=== PATIENT | male | born 1960 | race Caucasian/White ===

== ENCOUNTER → 2018-07-26 16:34 | Outpatient (CLI) | payer OTHER, SELFPAY ==
[2018-07-26 17:11] LABS: Hemoglobin A1C% w Est Avg Glu 6.6 % (4.0-6.0)
== END ==
PROVIDERS: Family Provider Family Medicine; PCP Family Medicine; Visit Provider Family Medicine
DX: E11.9 Type 2 diabetes mellitus without complications (principal)
CPT/HCPCS: 36415; 83036

== ENCOUNTER 2018-09-08 11:05 | Day surgery (SDC) | payer OTHER, SELFPAY ==
[2018-09-08] VITALS (8 sets, daily range): BP systolic 104–158; BP diastolic 72–94; PULSE 63–72; RESP 12–16; TEMP 36.2–36.9; O2SAT 93–96; BMI 31.9
[2018-09-08] MEDS: SODIUM CHLORIDE 0.9% 1,000 ML 200 ML IV (12:18)
--- NOTE | 2018-09-08 12:47 | PM.PREOP ---
Pre-operative Note Interval Note Pre-op Check: Yes History & Physical Reviewed by Physician, Yes Exam Performed and Yes History & Physical exam performed today by Physician Changes: No H&P completed within 30 days and has changed as indicated here:: Patient seen and examined today. History and physical examination documented and placed on the chart today. Proceed with colonoscopy as planned. ASA Class (for procedural sedation): II
--- NOTE | 2018-09-08 12:48 | P.HP_ITS ---
History of Present Illness Date Patient Seen: 09/08/18 Time Patient Seen: 12:44 Chief complaint: [id number] Narrative: 58-year-old male with personal history of colon polyps whose last endoscopy was approximately 10 years ago. He presents today for colorectal surveillance. On further history today he denies any nausea, vomiting, loss of appetite, unexplained weight loss, abdominal pain, change in bowel habits, diarrhea, constipation, melena, or hematochezia. Patient History Medical History Asthma (Acute) Diabetes (Acute) History of colon polyps (Acute) Hyperlipidemia (Acute) Hypertension (Acute) Seasonal allergies (Acute) Surgical History History of colonoscopy (Acute) History of hernia repair (Acute) Family & Social History Family History: Reviewed 09/08/18 by Mars Neely MD Social History: household members family Tobacco & Substance use: Smoking Status Never smoker Meds Home Medications Medication Instructions Recorded Confirmed Type loratadine [Claritin] 10 mg PO PRN #30 tab 03/09/17 01/25/18 Rx epinephrine [EpiPen 2-Evert] 0.3 mg IJ PRN PRN #1 pkg 12/20/17 01/25/18 Rx glimepiride 2 mg tablet 2 mg PO AMCC #30 tab 02/27/18 Rx lisinopril 20 1 tab PO QAM #90 tab 03/02/18 Rx mg-hydrochlorothiazide 12.5 mg tablet simvastatin 10 mg tablet 10 mg PO HS #90 tabs 03/02/18 Rx albuterol sulfate [Ventolin HFA] 1 - 2 puff INH Q2-4H PRN #1 inh 05/17/18 Rx metformin 500 mg tablet 1,000 mg PO BID #360 tabs 08/23/18 Rx Allergies Allergy/AdvReac Type Severity Reaction Status Date / Time peanut [PEANUT] Allergy Severe ANAPHYLAXIS Verified 01/25/18 10:50 shellfish derived Allergy Severe Anaphylaxis Verified 09/08/18 12:09 [SHELLFISH DERIVED] venom-honey bee Allergy Severe swelling Verified 09/08/18 12:09 [BEE VENOM (HONEY BEE)] eyes wheat [WHEAT] Allergy Severe ANAPHYLAXIS Verified 01/25/18 10:50 Penicillins [PENICILLINS] Allergy Intermediate Rash Verified 09/08/18 12:09 Review of Systems Review of Systems All systems reviewed & are unremarkable except as noted in HPI and below Exam Vital Signs (past 8 hours): - 09/08/18 12:13 Temperature 98.2 F Pulse Rate 72 Respiratory Rate 16 Blood Pressure 158/94 H Pulse Oximetry 96 Oxygen Delivery Method Room Air Narrative Exam Narrative: Well-nourished well-developed male in no acute distress. Alert oriented x3 Sclera nonicteric Regular rate and rhythm Abdomen soft, nondistended, nontender, no masses Extremities show no clubbing or cyanosis Objective Labs Labs: No recent laboratory or radiographic studies for review. Fingerstick blood sugar at admission today was 116. Assessment & Plan Plan: Assessment/Plan Narrative: 58-year-old male with personal history of colon polyps requiring colorectal surveillance for such. I recommend colonoscopy. Technical details of the procedure were reviewed. Risks, benefits, alternatives were explained. Risks including but not limited to sedation, aspiration, bleeding, pain, missed lesion , incomplete examination, need for further radiographic studies, colonic perforation, need for major abdominal surgery, and all attendant risks of major surgery were discussed in detail. All questions were answered to his satisfaction, and he voiced understanding. Consent was placed on the chart. We will proceed as above.
[2018-09-08] MEDS: MIDAZOLAM 5 MG/5 ML VIAL IV (13:03)
[2018-09-08] MEDS: fentaNYL 250 MCG/5 ML INJ IV (13:04)
--- NOTE | 2018-09-08 13:16 | PM.OP.ENDO ---
Operative Date/Time/Diagnoses Date of procedure: 09/08/18 Time of procedure: 13:16 Pre-op diagnosis: Personal history of colon polyps Post-op diagnosis: other (Normal colon and rectum) Procedure & Clinicians Study performed: 1. Sedation per surgeon 2. Colonoscopy Same procedure as scheduled: Yes Indications: 58-year-old male with personal history of colon polyps. Last endoscopy was 10 years ago. He presents now for colorectal surveillance. Colonoscopy is recommended. Surgeon: Mars Neely Procedure Notes SCOAP/Timeout: Yes Procedure in detail: After obtaining informed consent, the patient was brought to the GI suite and placed in the left lateral decubitus position on the examination table. After placement of appropriate monitors, the patient was given incremental doses of Versed and Fentanyl until an appropriate level of sedation was achieved. A time out was held per SCOAP protocol. A digital rectal examination was performed and did not reveal any masses or obstructing lesions. The colonoscope was gently passed into the patient's anus and the entire colon navigated to the level of the cecum with minimal difficulty. Terminal ileum was intubated and noted to be grossly normal. Once in the cecum, the scope was withdrawn being sure to go before and beyond all mucosal folds and prominences and get an excellent examination. The findings are noted above. At the level of the rectal vault, the scope was retroflexed and the internal anal canal was examined. The scope was straightened and air aspirated from the colon. The instrument was removed from the patient's body and the procedure was concluded. The patient was allowed to awaken from sedation without difficulty and taken to the post-anesthesia care unit in good condition. Scope withdrawal time: 7:58 min Sedation minutes: 18 Findings: other findings (Normal colon and rectum) Specimen(s): none sent Complications: none Recommendations: Colonscopy in 10 years and High fiber diet Plan for aftercare: 1. Discharged home Follow up: as needed Disposition: PACU
== END 2018-09-08 15:00 | disposition home or self-care (01) ==
PROVIDERS: Family Provider Family Medicine; PCP Family Medicine; Visit Provider Surgery
PROC: 0DJD8ZZ Inspection of Lower Intestinal Tract, Via Natural or Artificial Opening Endoscopic (ICD-10-PCS; CPT 45378; principal; 2018-09-08 13:00)
DX: Z86.010 Personal history of colon polyps (principal); J45.909 Unspecified asthma, uncomplicated; E11.9 Type 2 diabetes mellitus without complications; E78.5 Hyperlipidemia, unspecified; I10 Essential (primary) hypertension; Z79.84 Long term (current) use of oral hypoglycemic drugs
CPT/HCPCS: 45378; 99152; J2250; J3010

== ENCOUNTER 2021-09-27 12:19 | Emergency (ER) | payer OTHER, SELFPAY ==
[2021-09-27 14:06] VITALS: BP 146/86; PULSE 85; RESP 16; TEMP 36.7; O2SAT 97
--- NOTE | 2021-09-27 15:11 | ED.BACK ---
HPI - Back Pain/Injury General Chief Complaint: Back Pain/Injury Stated Complaint: LT SIDE ABDOMINAL NUMBNESS Time Seen by Provider: 09/27/21 15:11 Source: patient History of Present Illness HPI Narrative: Patient is a 61-year-old male has diabetes, hypertension, chronic back pain presenting today with 3 days of abdominal numbness. He says he has had ongoing low back pain was worse about a month ago. His job is quite labor-intensive he has had increasing back pain however over the last 3-4 days he has noted some numbness and coolness in his left abdomen. He can track it is not moving there is no rash it is not significantly painful. He occasionally has sharp shooting pain down his left leg. He has no changes in bowel or bladder habits. He has no fever. He just thought this was a little abnormal. Related Data Previous Rx's Medication Instructions Recorded loratadine 10 mg tablet (Claritin) 10 mg PO PRN #30 tab 03/09/17 glimepiride 2 mg tablet (Amaryl) 2 mg PO AMCC #30 tab 02/27/18 lisinopril 20 1 tab PO QAM #90 tab 03/02/18 mg-hydrochlorothiazide 12.5 mg tablet simvastatin 10 mg tablet (Zocor) 10 mg PO HS #90 tabs 03/02/18 albuterol sulfate 90 mcg/actuation 1 - 2 puff INH Q2-4H PRN #1 inh 05/17/18 aerosol inhaler (Ventolin HFA) metformin 500 mg tablet 1,000 mg PO BID #360 tabs 11/27/18 (Glucophage) epinephrine 0.3 mg/0.3 mL 0.3 mg (0.3 mL) IM PRN PRN #1 pkg 04/24/19 injection, auto-injector (EpiPen 2-Evert) prednisone 20 mg tablet 20 mg PO DAILY #5 tab 09/27/21 Allergies Allergy/AdvReac Type Severity Reaction Status Date / Time peanut [PEANUT] Allergy Severe ANAPHYLAXIS Verified 01/25/18 10:50 shellfish derived Allergy Severe Anaphylaxis Verified 09/08/18 12:09 [SHELLFISH DERIVED] venom-honey bee Allergy Severe swelling Verified 09/08/18 12:09 [BEE VENOM (HONEY BEE)] eyes wheat [WHEAT] Allergy Severe ANAPHYLAXIS Verified 01/25/18 10:50 Penicillins [PENICILLINS] Allergy Intermediate Rash Verified 09/08/18 12:09 Review of Systems Review of Systems Narrative: GENERAL: Denies chills, fatigue, malaise, fever, sweats, travel HEENT: Denies sinus pain, ear pain, sore throat, difficulty swallowing, neck pain RESPIRATORY: Denies dyspnea, cough, wheezing, hemoptysis, sputum. CARDIOVASCULAR: Denies chest pain, palpitations, orthopnea, edema GASTROINTESTINAL: Denies nausea, vomiting, abdominal pain, diarrhea, constipation, melena. : Denies dysuria, frequency, incontinence, hematuria, urinary retention, flank pain. MUSCULOSKELETAL: + back pain, see HPI Denies weakness, joint pain, or bony pain SKIN: No rash, no erythema, no pruritus NEUROLOGIC: See HPI PSYCHIATRIC: No concerning psychosocial issues. 12 point review of systems is negative except for those stated above and HPI Patient History Medical History (Updated 09/27/21 @ 15:34 by Fatemeh Vargas DO) Asthma Diabetes History of colon polyps Hyperlipidemia Hypertension Seasonal allergies Surgical History History of colonoscopy History of hernia repair Social History household members: family Smoking Status: Never smoker Smoking Status: Never smoker Exam Initial Vital Signs Initial Vital Signs: Vital Signs Temperature 98.0 F 09/27/21 14:06 Pulse Rate 85 09/27/21 14:06 Respiratory Rate 16 09/27/21 14:06 Blood Pressure 146/86 H 09/27/21 14:06 Pulse Oximetry 97 09/27/21 14:06 GENERAL: Well-appearing, well-nourished and in no acute distress. He overall appears well and in not any pain HEENT: Head atraumatic,EOMI, pupils reactive, face symmetric, moist mucous membranes CARDIOVASCULAR: Peripheral pulses intact RESPIRATORY: Speaks in full sentences without difficulty ABDOMEN: Soft, nontender. Normoactive bowel sounds all 4 quadrants. No guarding or rebound. BACK: No vertebral tenderness no paraspinal tenderness EXTREMITIES: Normal range of motion, no clubbing or edema. Neurovascularly intact NEUROLOGICAL: Alert and oriented x4.Normal gait and speech. Very sensitive in T10 dermatome on left side. Deep tendon reflexes intact and equal bilaterally sensation in lower extremities equal bilaterally SKIN: Warm, dry, no laceration, no petechiae, no rashes or lesions. Course Vital Signs Vital signs: Vital Signs - 8 hr 09/27/21 14:06 Temperature 98.0 F Pulse Rate 85 Respiratory Rate 16 Blood Pressure 146/86 H Pulse Oximetry 97 MDM - Back Pain/Injury Lab Data Labs: Urine Dip Bedside Urine Glucose Negative Bedside Urine Bilirubin - Negative Bedside Urine Ketone - Negative Urine Specific [place] 1.030 Bedside Urine Occult Blood - Negative Bedside Urine pH 5.5 Bedside Urine Protein - Negative Bedside Urine Urobilinogen - Negative Bedside Urine Nitrite - Negative Bedside Urine Leukocytes - Negative Esterase MDM Narrative Medical decision making narrative: Patient does have some sensitivity in the T10 dermatome area. Possible early shingles although it is not quite painful versus nerve compression. He has no signs of cauda equina at this time. I do recommend probable outpatient MRI. Will give him short course of prednisone. Discharge Plan Departure Patient Disposition: Home Clinical Impression: Neuropathy Instructions: Thoracic Back Pain, DI for Peripheral Neuropathy Activity Restrictions/Additional Instructions: *You have been diagnosed with back pain, neuropathy *What to do: Head this time please continue to monitor if you should develop a rash he is likely shingles however you still may need an outpatient MRI that your PCP can help arrange *Continue to take medications as directed Prednisone 20 mg once a day for 5 days *Follow up with your primary care provider in 2-3 days or call [phone] *Return to ER if you should have increasing pain, loss of bowel knee urine, worsening coolness or numbness, weakness or any new, worsening or concerning symptoms Prescriptions: New prednisone 20 mg tablet 20 mg PO DAILY Qty: 5 0RF No Action loratadine [Claritin] 10 MG tablet 10 mg PO PRN Qty: 30 3RF glimepiride [Amaryl] 2 mg tablet 2 mg PO AMCC Qty: 30 6RF simvastatin [Zocor] 10 mg tablet 10 mg PO HS Qty: 90 1RF lisinopril-hydrochlorothiazide 20-12.5 mg tablet 1 tab PO QAM Qty: 90 1RF Ventolin HFA 90 mcg/actuation HFA aerosol inhaler 1 - 2 puff INH Q2-4H PRN Qty: 1 3RF metformin [Glucophage] 500 mg tablet 1,000 mg PO BID Qty: 360 0RF epinephrine [EpiPen 2-Evert] 0.3 mg/0.3 mL auto-injector 0.3 mg IM PRN PRN (Reason: hypersensitivity reaction) Qty: 1 3RF Referrals: Pricilla Kraft MD [Primary Care Provider] - Stand Alone Forms: Work Release Note
== END 2021-09-27 16:01 | disposition home or self-care (01) ==
PROVIDERS: Emergency Provider Emergency Medicine; PCP Student in an Organized Health Care Education/Training Program
DX: G62.9 Polyneuropathy, unspecified (principal)
CPT/HCPCS: 81003; 99281; 99282

== ENCOUNTER → 2021-10-10 12:35 | Outpatient (CLI) | payer OTHER, SELFPAY ==
--- NOTE | 2021-10-10 | DI.MRI.S_ITS ---
PROCEDURE: MR LUMBAR SPINE WO CON INDICATIONS: Radiculopathy, lumbar region TECHNIQUE: Noncontrast sagittal T1 spin echo and T2 fast echo, sagittal STIR, axial T1 and T2 fast spin echo through the lumbar spine. In cases with scoliosis, additional coronal T2 fast spin echo may be performed. COMPARISON: None. FINDINGS: Image quality: Excellent. Alignment and Curvature: There is normal bony alignment. Bone Marrow: Marrow is of normal overall signal. No acute vertebral body compression fractures. Spinal Cord: Normal position and appearance of the conus. Regional Soft Tissues: Prevertebral and paraspinous soft tissues demonstrate no significant abnormality. T12-L1: No spinal canal or neural foraminal stenosis. L1-L2: No spinal canal or neural foraminal stenosis. L2-L3: No spinal canal or neural foraminal stenosis. Mild facet hypertrophy. L3-L4: Diffuse disc bulge flattens the ventral thecal sac without mass effect upon the traversing L4 nerve roots. Foraminal components of the disc bulge and facet hypertrophy combine to produce mild bilateral neural foraminal stenosis. L4-L5: Diffuse disc bulge flattens the ventral thecal sac without mass effect upon the traversing L5 nerve roots. Foraminal components of the disc bulge and facet hypertrophy combine to produce mild bilateral neural foraminal stenosis. L5-S1: Diffuse disc bulge with a superimposed broad-based posterior disc protrusion and focal extrusion in the right subarticular zone. Displacement of the bilateral S1 nerve roots within the subarticular zones, right greater than left. Foraminal components of the disc bulge and facet hypertrophy combine to produce severe bilateral neural foraminal stenosis with flattening of the exiting L5 nerve roots. IMPRESSION: Degenerative changes in the lower lumbar spine, most pronounced at L5-S1, where there is possible impingement of the descending right S1 and exiting bilateral L5 nerve roots. Correlate for any corresponding radicular symptoms. Dictated by: Kvng Osei M.D. on 10/12/2021 at 9:00 Approved by: Kvng Osei M.D. on 10/12/2021 at 9:02
== END ==
PROVIDERS: PCP Student in an Organized Health Care Education/Training Program; Referring Provider Student in an Organized Health Care Education/Training Program; Visit Provider Student in an Organized Health Care Education/Training Program
DX: M54.16 Radiculopathy, lumbar region (principal); R20.0 Anesthesia of skin; M48.061 Spinal stenosis, lumbar region without neurogenic claudication; M48.07 Spinal stenosis, lumbosacral region; M51.26 Other intervertebral disc displacement, lumbar region; M51.27 Other intervertebral disc displacement, lumbosacral region
CPT/HCPCS: 72148

== ENCOUNTER → 2022-08-12 10:39 | Outpatient (CLI) | payer OTHER, SELFPAY ==
--- NOTE | 2022-08-24 16:55 | DIAB.MNT ---
Initial Diabetes Medical Nutrition Therapy Assessment Name: Will Grace Date: 08/12/22 Time: 11-145a Dx: Type II Diabetes Provider: Xiomara Mongeith presents today for initial visit regarding T2DM. States his HgA1c today was improved from April 8.4% to 6.8%. States he thinks the elevation in April is primarily due to increased sweets intake. Recently avoiding baked goods and refined sugars. Additionally, using smaller plates and being mindful of sat fat / meat portions. States he is getting sick of some vegetables. Diet Recall: 7a: mohan or sausage x 4, 1/2c melon, small banana OR honeynut cheerios 1c dry OR bran GF muffin 11a: homemade soup with veggies and meat, salad with burger dayan 5p: 1c pasta with 1c sauce, meat +/- corn/peas OR hamburger dayan OR fish tacos x 1 almond flour tortilla sn: sf applesauce OR half nectarine Or chips and cheese Beverages: 1 diet soda, 3 x 12 water, diet cran juice 12oz Reports anaphylaxis with wheat/PB/ shellfish Anthropometrics: Wt: 191# reported Weight history: 212# 04/2022 (reports goal of 180#) Physical Activity: walks 4 mi per day or more. Was running prior to MS dx. Self-Monitoring Blood Glucose: infrequent checks. May check in the afternoon (ac dinner around 130mg/dL). No recent FBG. States years ago his FBG were 150-180mg/dL H Diabetes Medications: Jardiance 10mg Glimepiride 4mg Metformin 1000mg BID Pertinent Labs: Reported HgA1c today 6.8% 04/2022 8.4% 01/2022 7.4% 10/2021 7.7% Past Medical History: (Last Reviewed 09/27/21 @ 15:27 by Fatemeh Vargas DO) Asthma Diabetes History of colon polyps Hyperlipidemia Hypertension Seasonal allergies Nutrition Rx: 64oz water daily CHO 45g per meal; 15-30g per snack CHO daily: 180g Nutrition Diagnosis: - Nutrition and food related knowledge deficit r/t unaware of fluid needs with Jardiance aeb pt report and diet recall <64oz water daily - Inconsistent protein intake r/t nutrition knowledge deficit aeb diet recall - Self monitoring deficit r/t stage of change for SMBG aeb pt report Intervention: This participant was very receptive. Provided appropriate educational handouts. Discussed the following topics: Completed intake assessment. Discussed barriers to care. Importance of self-monitoring, how often, and when to check. Suggested checking at different times to evaluate meals, but may benefit most from checking FBG Plate Method, and carb recs Fluid recs r/t medications Recommended servings for carbohydrates at meals and snacks Heart health nutrition Reviewed veggie options Role of physical activity and following provider guidelines for safety Created SMART goals for patient self-care and success. Goals: Increase water to 4 x 12oz per day- new Add pro when having fruit Check some FBG Follow-up: KENNETH LARSON follow-up in 4 weeks Remedios Luna RDN, [facility] Certified Diabetes Care and [employer] Helper P: [phone] Thank you for this referral
== END ==
PROVIDERS: PCP Student in an Organized Health Care Education/Training Program; Referring Provider Family Medicine; Visit Provider Family Medicine
DX: E11.9 Type 2 diabetes mellitus without complications (principal); Z79.84 Long term (current) use of oral hypoglycemic drugs; Z71.3 Dietary counseling and surveillance
CPT/HCPCS: 97802

== ENCOUNTER → 2022-11-09 08:39 | Outpatient (CLI) | payer OTHER, SELFPAY ==
--- NOTE | 2022-11-09 09:43 | DIAB.MNTFU ---
Follow-up Diabetes Medical Nutrition Therapy Assessment Name: Will Grace Date: 11/09/22 Time: 9-550a Dx: Type II Diabetes Provider: Xiomara Will presents for follow-up Dm visit. States he continues to eat mindfully on smaller plates. Portions seem quite small, but he states he feels satisfied. States he would like to lose another 5-7# and feels he has to be focused on small portions to be successful. trying to increase water since last visit, successful some days with up to 48oz per day of water plus diet beverages. 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 Additionally, watches fluids at night to refrain from excessive urination at night. Has increased some proteins, but could utilize more nuts/seeds to pair with oatmeal breakfast and snacks during the day. Anthropometrics: Wt: 185-187# reported Weight history: Down from reported 191# last visit Physical Activity: Continues 4mi walks per day plus activity at work. Admits there is room for improvement with adding resistance training, which may aid in weight loss goals via metabolism changes. Self-Monitoring Blood Glucose: Checks 1-2x per week, FBG or ac dinner. Some FBG elevated, but generally FBG 120-150mg/dl. This morning was 175mg/dl (H). Pre dinner readings in goal 90-130mg/dl. No postprandials for review. Diabetes Medications: Jardiance 10mg Glimepiride 4mg Metformin 1000mg BID Pertinent Labs: Reported HgA1c last visit 6.8% 04/2022 8.4% 01/2022 7.4% 10/2021 7.7% Past Medical History: (Last Reviewed 09/27/21 @ 15:27 by Fatemeh Vargas DO) Asthma Diabetes History of colon polyps Hyperlipidemia Hypertension Seasonal allergies Nutrition Rx: 64oz water daily CHO 45g per meal; 15-30g per snack CHO daily: 180g Nutrition Diagnosis: - Nutrition and food related knowledge deficit r/t unaware of fluid needs with Jardiance aeb pt report and diet recall <64oz water daily- improved/in progress - Inconsistent protein intake r/t nutrition knowledge deficit aeb diet recall - in progress - Self monitoring deficit r/t stage of change for SMBG aeb pt report - improved Intervention: This participant was very receptive. Provided appropriate educational handouts. Discussed the following topics: Blood sugar review and trends. Impact of gluconeogenesis at night. Satiety of meals and adding more plant based proteins Resistance training benefits Physical activity plan and progress Hydration plan and progress Fiber recs and sources Created SMART goals for patient self-care and success. Goals: Increase water to 4 x 12oz per day- improved/in progress Add pro when having fruit- in progress Check some FBG - met Cont to work on water intake and plan according to day- new Add nuts/seeds to breakfast/snacks- new Try resistance training (rec 2x per week)- new Follow-up: KENNETH LARSON follow-up prn. Overall, Will seems to be managing his DM well. Encouraged him to call or message with any questions or follow-up needs. Plans to see PCP in January. Remedios Luna RDN, [facility] Certified Diabetes Care and [employer]isher P: [phone] Thank you for this referral
== END ==
PROVIDERS: PCP Family Medicine; Referring Provider Family Medicine; Visit Provider Family Medicine
DX: E11.9 Type 2 diabetes mellitus without complications (principal); Z79.84 Long term (current) use of oral hypoglycemic drugs; Z71.3 Dietary counseling and surveillance
CPT/HCPCS: 97803

== ENCOUNTER → 2025-04-04 17:36 | Outpatient (ROUT) | payer OTHER, SELFPAY | PROVIDERS: PCP Family Medicine; Visit Provider Dermatology | DX: R21 Rash and other nonspecific skin eruption (principal) | CPT/HCPCS: 87070; 87075; 87102; 87205 ==